=== PATIENT | male | born 1990 | race Caucasian/White ===

== ENCOUNTER 2018-03-13 03:09 | Emergency (ER) | payer MEDICAID, SELFPAY ==
[2018-03-13 03:10] VITALS: BP 136/84; PULSE 81; RESP 14; TEMP 36.5; O2SAT 100; BMI 22.6
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
[2018-03-13] MEDS: traMADol 50 MG Tablet PO (03:52)
[2018-03-13] MEDS: Naproxen 500 MG Tablet PO (03:52)
[2018-03-13 04:02] VITALS: RESP 16
== END 2018-03-13 04:02 | disposition home or self-care (01) ==
PROVIDERS: Emergency Provider Emergency Medicine
DX: T23.231A Burn of second degree of multiple right fingers (nail), not including thumb, initial encounter (principal); T31.0 Burns involving less than 10% of body surface; F17.200 Nicotine dependence, unspecified, uncomplicated; X03.8XXA Other exposure to controlled fire, not in building or structure, initial encounter; Y93.89 Activity, other specified; Y92.89 Other specified places as the place of occurrence of the external cause; Y99.8 Other external cause status
CPT/HCPCS: 99283

== ENCOUNTER 2018-05-13 03:47 | Emergency (ER) | payer OTHER, MEDICAID, SELFPAY ==
[2018-05-13 03:48] VITALS: BP 136/73; PULSE 66; RESP 18; TEMP 36.6; O2SAT 95; BMI 23.7
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
--- NOTE | 2018-05-13 04:04 | DCINST.ED_ITS ---
ED Disposition - Plan for ED Patient: Chief Complaint: Laceration Instructions: ED Laceration Hand Referrals: Care Physician,No Primary [Primary Care Provider] - Corporate,[facility] [GROUP OF PHYSICIANS] - 10 Day for suture removal
== END 2018-05-13 04:01 | disposition home or self-care (01) ==
PROVIDERS: Emergency Provider Emergency Medicine
DX: S61.012A Laceration without foreign body of left thumb without damage to nail, initial encounter (principal); Z72.0 Tobacco use; W26.0XXA Contact with knife, initial encounter; Y93.89 Activity, other specified; Y92.89 Other specified places as the place of occurrence of the external cause; Y99.0 Civilian activity done for income or pay
CPT/HCPCS: 12001; 99284

== ENCOUNTER 2019-03-03 16:26 | Emergency (ER) | payer SELFPAY ==
[2019-03-03 16:27] VITALS: BP 106/76; PULSE 111; RESP 16; TEMP 36.7; O2SAT 99; BMI 23.7
--- NOTE | 2019-03-03 16:34 | ED.VISSUMM ---
- ER Visit Summary Date of Service: 03/03/19 Chief Complaint: Abscess History of Present Illness: The patient is a 28 M with a right groin abscess for several days. No other symptoms. No blood thinners. No allergies. Physical Examination: Patient has a right perineum abscess measuring approximately one 7 m x 2 cm. Does not involve the genitalia or anus. Superficial. Test Results: None indicated Emergency Department Course and Treatment: I&D performed by me. Wound left open. Soaks. Bactrim and Keflex. Follow-up with primary care. Treatment Plan: As above Disposition: Discharge Impression: Right perineum abscess I&D This note was generated with [employer] dictation software. It may contain incorrect words, spelling, and punctuation that were not noted in review of the chart prior to signing ED Disposition - Plan for ED Patient: Referrals: Care Physician,No Primary [Primary Care Provider] -
--- NOTE | 2019-03-03 16:40 | ED.DEP ---
ED Disposition - Plan for ED Patient: Instructions: ABSCESS, Incision and Drainage Prescriptions: Smz/Tmp Ds [Bactrim Ds] 1 tab PO BID #14 tab Prescription Printed Cephalexin [Keflex] 500 mg PO Q6 7 Days #28 cap Prescription Printed Referrals: Sarahi Ladd [NON-STAFF] -
[2019-03-03] MEDS: Cephalexin 250 MG Capsule 500 MG PO (17:17)
[2019-03-03] MEDS: Smz/Tmp Ds Tablet 1 TABLET PO (17:17)
== END 2019-03-03 17:50 | disposition home or self-care (01) ==
PROVIDERS: Emergency Provider Emergency Medicine
DX: L02.215 Cutaneous abscess of perineum (principal); Z72.0 Tobacco use
CPT/HCPCS: 10060; 99284

== ENCOUNTER 2019-03-04 00:18 | Emergency (ER) | payer SELFPAY ==
[2019-03-03 16:27] VITALS: BMI 23.7
[2019-03-04 00:21] VITALS: BP 119/73; PULSE 98; RESP 16; TEMP 37.6; O2SAT 98; BMI 24.0
--- NOTE | 2019-03-04 00:35 | EKG12_ITS ---
Test Reason : ALT LOC Blood Pressure : / mmHG Vent. Rate : 096 BPM Atrial Rate : 096 BPM P-R Int : 150 ms QRS Dur : 102 ms QT Int : 334 ms P-R-T Axes : 079 076 079 degrees QTc Int : 421 ms Normal sinus rhythm with sinus arrhythmia Normal ECG Confirmed by JAIME ANN ([id number]), loan expeditor MARSHA MCKEON ([id number]) on 03/08/2019 1:25:24 PM Referred By: TONYA Confirmed By:JAIME ANN
--- NOTE | 2019-03-04 00:35 | CT_ITS ---
HISTORY: RT PERINEAL ABSCESS X SEVERAL DAYS,FEVER,SEEN EARLIER AND STARTED ANTIBIOTICS TECHNIQUE: CT of the pelvis was performed with IV contrast. A radiation dose optimization technique was used for this scan. IV Contrast dosage and agent: 100ML ml of Isovue 300 Enteric contrast: None. Number of images including paperwork: 413. COMPARISON: None FINDINGS: BLADDER: Unremarkable. REPRODUCTIVE ORGANS: Unremarkable. GASTROINTESTINAL TRACT: Unremarkable visualized segments. PERITONEUM AND RETROPERITONEUM: No free air. No significant free fluid. LYMPH NODES: No enlarged pelvic lymph nodes. ABDOMINAL WALL: No definite hernia. SKELETON: No acute skeletal findings. SOFT TISSUE STRUCTURES: Soft tissue stranding is present in the right perineum and inferomedial gluteal region. No localized fluid collection or soft tissue gas. CT/Pelvis WITH IV Contrast IMPRESSION: Soft tissue stranding in the right perineum and inferomedial gluteal region suggestive of cellulitis. Individualized dose optimization techniques were used for this CT. at 0219 Reported and signed by: Radha Paz MD Electronically Signed: Radha Paz MD at 2:19 EDT Tel , Service support ,
--- NOTE | 2019-03-04 00:37 | ED.DCSUM_ITS ---
History of Present Illness Chief Complaint: Alt LOC Informant: Family Onset: Today Narrative: Informant from friends and family. Seen earlier today for an abscess with I&D. He was discharged around 5 PM. Prescription of Keflex and Bactrim was written. Not filled. Reported by family, states was not feeling well and having fevers sensations. Took a shower, took ibuprofen, and stating he is not himself. They state he has tobacco history denies illicit drug use. Occasional alcohol. He was not written for any narcotics from discharge. Patient currently not communicating or willing to talk. Past Medical History - Allergies and Home Meds Allergies/Adverse Reactions: Allergies No Known Allergies Allergy (Verified 03/04/19 00:21) Primary Care Physician: Care Physician,No Primary [Primary Care Provider] - Smoking Status: Current every day smoker Review of Systems ROS: Unable to Obtain Physical Exam Vital Signs/Narrative: Vital Signs Temp Pulse Resp BP Pulse Ox 03/04/19 00:21 99.7 F H 98 16 119/73 98 Inital Vital Signs reviewed: Yes General: Well nourished, Well developed, - - Moving all extremities rolling around in bed, however not answering questions. Head: Normocephalic, Atraumatic Eyes: Perrl, EOMI, - - 4 mm pupils equal and reactive bilaterally. ENT: Moist mucous membranes, No rhinorrhea Neck: Supple, Nontender Cardiovascular: Regular rate, Regular rhythm, No murmurs Respiratory: No distress, CTA bilaterally, Chest nontender Abdomen: Soft, Nontender, Nondistended, Normal bowel sounds : - - Perennial region noted abscess right side with induration, no active drainage, there is erythema in the area, there is no scrotal involvement. Back: Nontender, Normal Inspection Extremities: Nontender, No edema Skin: Normal color, No rash, - - See above Neurological: Cranial nerves II-XII grossly intact Psychological: - - Slightly agitated Diagnostic/Tx/Re-eval Abnormal Lab Results 03/04/19 03/04/19 03/04/19 00:40 00:40 00:40 WBC 16.1 H RBC 5.06 Hgb 14.3 Hct 43.5 MCV 86.0 MCH 28.3 MCHC 32.9 RDW Std Deviation 42.2 RDW Coeff of [place] 13.5 Plt Count 244 MPV 9.0 Immature Gran % (Auto) 0.400 Neut % (Auto) 80.2 H Lymph % (Auto) 10.3 L [place] % (Auto) 7.8 Eos % (Auto) 1.1 Baso % (Auto) 0.2 Absolute Neuts (auto) 12.9 H Absolute Lymphs (auto) 1.66 Nucleated RBC % 0 PT 14.3 INR 1.1 APTT 31.3 Sodium 139 Potassium 3.4 L Chloride 107 Carbon Dioxide 26.0 Anion Gap 6 BUN 11 Creatinine 1.03 Estim Creat Clear Calc 113.72 Est GFR (MDRD) Af Amer 110 Est GFR (MDRD) Non-Af 91 BUN/Creatinine Ratio 10.7 Glucose 95 Lactic Acid Calcium 8.9 Total Bilirubin 0.50 AST 14 L ALT 20 Alkaline Phosphatase 65 Total Protein 7.4 Albumin 3.8 Globulin 3.6 Albumin/Globulin Ratio 1.1 Urine Color Urine Clarity Urine pH Ur Specific Melissa Urine Protein Urine Glucose (UA) Urine Ketones Urine Occult Blood Urine Nitrite Urine Bilirubin Urine Urobilinogen Ur Leukocyte Esterase Urine RBC Urine WBC Ur Squamous Epith Cells Amorphous Sediment Urine Bacteria Hyaline Casts Coarse Granular Casts Urine Mucus Urine Opiates Screen Urine Methadone Screen Ur Barbiturates Screen Ur Phencyclidine Scrn Ur Amphetamines Screen U Methamphetamin-MDMA U Benzodiazepines Scrn Urine Cocaine Screen U Cannabinoids Screen Ur Drug Screen Comment Ethyl Alcohol 03/04/19 03/04/19 03/04/19 00:40 00:55 02:10 WBC RBC Hgb Hct MCV MCH MCHC RDW Std Deviation RDW Coeff of [place] Plt Count MPV Immature Gran % (Auto) Neut % (Auto) Lymph % (Auto) [place] % (Auto) Eos % (Auto) Baso % (Auto) Absolute Neuts (auto) Absolute Lymphs (auto) Nucleated RBC % PT INR APTT Sodium Potassium Chloride Carbon Dioxide Anion Gap BUN Creatinine Estim Creat Clear Calc Est GFR (MDRD) Af Amer Est GFR (MDRD) Non-Af BUN/Creatinine Ratio Glucose Lactic Acid 1.4 Calcium Total Bilirubin AST ALT Alkaline Phosphatase Total Protein Albumin Globulin Albumin/Globulin Ratio Urine Color Yellow Urine Clarity Sl. Cloudy Urine pH 7.0 Ur Specific Melissa 1.010 Urine Protein Negative Urine Glucose (UA) Normal Urine Ketones Negative Urine Occult Blood Negative Urine Nitrite Negative Urine Bilirubin Negative Urine Urobilinogen Normal Ur Leukocyte Esterase Negative Urine RBC 0 SEEN Urine WBC 0 SEEN Ur Squamous Epith Cells 0-5 SEEN Amorphous Sediment 1+ Urine Bacteria RARE Hyaline Casts 0-5 SEEN Coarse Granular Casts 0-5 SEEN Urine Mucus RARE Urine Opiates Screen Urine Methadone Screen Ur Barbiturates Screen Ur Phencyclidine Scrn Ur Amphetamines Screen U Methamphetamin-MDMA U Benzodiazepines Scrn Urine Cocaine Screen U Cannabinoids Screen Ur Drug Screen Comment Ethyl Alcohol 4.0 03/04/19 02:10 WBC RBC Hgb Hct MCV MCH MCHC RDW Std Deviation RDW Coeff of [place] Plt Count MPV Immature Gran % (Auto) Neut % (Auto) Lymph % (Auto) [place] % (Auto) Eos % (Auto) Baso % (Auto) Absolute Neuts (auto) Absolute Lymphs (auto) Nucleated RBC % PT INR APTT Sodium Potassium Chloride Carbon Dioxide Anion Gap BUN Creatinine Estim Creat Clear Calc Est GFR (MDRD) Af Amer Est GFR (MDRD) Non-Af BUN/Creatinine Ratio Glucose Lactic Acid Calcium Total Bilirubin AST ALT Alkaline Phosphatase Total Protein Albumin Globulin Albumin/Globulin Ratio Urine Color Urine Clarity Urine pH Ur Specific Melissa Urine Protein Urine Glucose (UA) Urine Ketones Urine Occult Blood Urine Nitrite Urine Bilirubin Urine Urobilinogen Ur Leukocyte Esterase Urine RBC Urine WBC Ur Squamous Epith Cells Amorphous Sediment Urine Bacteria Hyaline Casts Coarse Granular Casts Urine Mucus Urine Opiates Screen NEGATIVE Urine Methadone Screen NEGATIVE Ur Barbiturates Screen NEGATIVE Ur Phencyclidine Scrn NEGATIVE Ur Amphetamines Screen NEGATIVE U Methamphetamin-MDMA NEGATIVE U Benzodiazepines Scrn NEGATIVE Urine Cocaine Screen NEGATIVE U Cannabinoids Screen NEGATIVE Ur Drug Screen Comment Ethyl Alcohol Clinical Impression(s) from Imaging Studies Pelvis CT 03/04/19 00:35 IMPRESSION: Soft tissue stranding in the right perineum and inferomedial gluteal region suggestive of cellulitis. Individualized dose optimization techniques were used for this CT. at 0219 Reported and signed by: Radha Paz MD Electronically Signed: Radha Paz MD at 2:19 EDT Tel , Service support , - Medical Decision Making Patient vital signs stable on arrival temp is 99, he had no lateralizing findings or focal deficits. He has had abscess in his perineal region that was I&D earlier. There is induration and redness in this region. Sepsis work-up was initiated, white count 16, lactic acid 1.4. Pelvis CT obtained, shows no pocket collections, stranding noted consistent with cellulitis in the region. Alcohol and tox screen negative. In interim multiple evaluations he was more responsive he was up walking around he is alert and oriented x3. Reports he just did not want to talk earlier, he is not septic. Patient back to baseline, discussed wound care with patient continuing his antibiotics and finishing him, he is due for his next dose therefore there is ordered. Bactrim and Keflex orally was given. He will follow-up as noted with sun Luque from his discharge. Signs and symptoms discussed return. All questions were answered. ED Disposition - Plan for ED Patient: Disposition: Home or Assisted Living Diagnosis: Cellulitis of perineum Instructions: Cellulitis Referrals: Care Physician,No Primary [Primary Care Provider] - Sarahi Ladd [NON-STAFF] - 3-5 Days Additional Instructions: You had your infection area drained earlier. There is no abscess collection on CT. Take your antibiotics as prescribed and finish this. Follow-up as discussed. Return if any worsening symptoms.
[2019-03-04 00:50] LABS: Absolute Lymphocyte Count 1.66 X10^3/uL (0.83-4.51); Absolute Neutrophil Count 12.9 X10^3/uL (2.0-7.7); Basophil# 0.03 X10^3/uL; Basophil% 0.2 % (0-1); Eosinophil# 0.18 X10^3/uL; Eosinophils% 1.1 % (0-5); Hematocrit 43.5 % (40-54); Hemoglobin 14.3 g/dL (13.0-16.5); Lymphocyte # 1.66 X10^3/ul (4.0); Lymphocyte % 10.3 % (19-41); Mean Corp Hgb Conc 32.9 g/dL (32-36); Mean Corpuscular Hgb 28.3 pg (27.0-32.0); Monocyte# 1.25 X10^3/uL; Monocyte% 7.8 % (0-10); NRBC Flagged by Analyzer 0 % (0-5); Neutrophil # 12.92 X10^3/uL (2.7-7.7); Neutrophil % 80.2 % (47-70); Platelet Count 244 K/mm3 (150-450); RBC Distribution Width CV 13.5 % (11.6-14.6); RBC Distribution Width SD 42.2 fl (35.1-43.9); Red Blood Count 5.06 M/mm3 (4.6-6.2); White Blood Count 16.1 K/mm3 (4.4-11.0)
[2019-03-04] MEDS: 0.9% Normal Saline 1,000 ML 150 ML IV (00:54)
[2019-03-04 01:02] LABS: International Normalized Ratio 1.1; Prothrombin Time (Protime)PT. 14.3 SECONDS (11.7-14.9)
[2019-03-04 01:03] LABS: Partial Thromboplast Time 31.3 Seconds (24.1-36.2)
--- NOTE | 2019-03-04 01:04 | ED.RN ---
advised pt that urine specimen is needed.pt is awake,but not talking presently.pt uses head gestures and hands to communicate to his friend.
[2019-03-04 01:07] LABS: ALB/GLOB Ratio 1.1 RATIO (0.9-2.4); AST(SGOT) 14 U/L (15-37); Alanine Aminotransfer ALT/SGPT 20 U/L (16-61); Albumin, Serum 3.8 g/dL (3.2-5.0); Alkaline Phosphatase 65 U/L (45-117); Anion Gap 6 (5-15); BUN 11 mg/dL (7-18); BUN/Creat Ratio 10.7 RATIO (10-20); Calcium,Total 8.9 mg/dL (8.5-10.1); Chloride 107 mmol/L (98-107); Creatinine, Serum 1.03 mg/dL (0.70-1.30); EST Glomerular Filtration Rate 91 mL/min (>60); Est Glom Filt Rate - Afr Amer 110 mL/min (>60); Estimated Creatinine Clearance 113.72 ml/min; Globulin 3.6 g/dL (2.2-4.2); Glucose 95 mg/dL (74-106); Potassium 3.4 mmol/L (3.5-5.1); Protein, Total 7.4 g/dL (6.4-8.2); Sodium Level 139 mmol/L (136-145)
[2019-03-04 01:11] LABS: Lactic Acid 1.4 mmol/L (0.4-2.0)
[2019-03-04 01:28] VITALS: RESP 16
[2019-03-04 02:14] LABS: Red Blood Cells-Urine 0 SEEN /hpf (0-5); White Blood Cells 0 SEEN /hpf (0-5)
[2019-03-04 02:15] LABS: Color, Urine Yellow (Yellow); Glucose, Dipstick Normal (Normal); Ketone-Dipstick Negative (Negative); Leukocyte Esterase-Dipstick Negative /ul (Negative); Nitrite-Dipstick Negative (Negative); Occult Blood-Urine Negative /ul (Negative); Protein-Dipstick Negative (Negative); Urine Bilirubin Dipstick Negative (Negative); Urine Clarity Sl. Cloudy (Clear); Urine Urobilinogen Normal (Normal)
[2019-03-04 02:20] LABS: Amorphous Sediment 1+; Bacteria RARE /hpf (None Seen); Coarse Granular Cast 0-5 SEEN /lpf (0-5 /lpf); Hyaline Cast 0-5 SEEN /lpf (0-5); Mucous, Urine RARE /hpf (<or=2+)
[2019-03-04 02:21] LABS: Squamous Epithelial Cells - UA 0-5 SEEN /hpf (0-5)
[2019-03-04 02:41] LABS: Amphetamine Urine VISTA NEGATIVE (<1000 ng/mL); Barbiturate Urine VISTA NEGATIVE (< 200 ng/mL); Benzodiazepine Urine VISTA NEGATIVE (< 200 ng/mL); Cocaine Urine VISTA NEGATIVE (< 300 ng/mL); Ecstacy Urine VISTA NEGATIVE (< 500 ng/mL); Methadone Urine VISTA NEGATIVE (< 300 ng/mL); PCP Urine VISTA NEGATIVE (< 25 ng/mL); THC Urine VISTA NEGATIVE (< 50 ng/mL); Vista UDS pH Range 7
[2019-03-04] MEDS: Smz/Tmp Ds Tablet 1 TABLET PO (02:59)
[2019-03-04] MEDS: Cephalexin 250 MG Capsule 500 MG PO (02:59)
[2019-03-04 03:00] VITALS: BP 124/60; PULSE 77; RESP 16; O2SAT 99
== END 2019-03-04 03:01 | disposition home or self-care (01) ==
PROVIDERS: Emergency Provider Emergency Medicine
DX: L03.315 Cellulitis of perineum (principal); F17.200 Nicotine dependence, unspecified, uncomplicated
CPT/HCPCS: 36415; 72193; 80053; 80307; 80320; 81001; 83605; 85025; 85610; 85730; 87040; 93005; 96360; 96361; 99285; J7030; Q9967; A4216; G0480

== ENCOUNTER 2022-07-25 12:36 | Emergency (ER) | payer MEDICAID, SELFPAY ==
[2022-07-25 12:37] VITALS: BP 132/88; PULSE 87; RESP 16; TEMP 36; O2SAT 100; BMI 23.7
[2022-07-25 13:16] VITALS: BP 126/78; PULSE 66; RESP 16; TEMP 36.6; O2SAT 99
--- NOTE | 2022-07-25 13:17 | EDS_ITS ---
HPI History of Present Illness Chief Complaint: General Illness Informant: patient Narrative Narrative: Patient is a 32-year-old male who denies any past medical history presenting with 1 day of dysuria and penile discharge. No associated testicular pain. States he recently got out of a relationship but had only had 1 partner. Denies any history of sexually transmitted infections. Denies any other complaints at this time. PFSH PFSH Medical History no medical history Home Medications doxycycline hyclate 100 mg tablet 100 mg PO BID #13 tabs 07/25/22 [Rx Last Taken Unknown] Allergy/AdvReac Type Severity Reaction Status Date / Time No Known Allergies Allergy Verified 07/25/22 12:37 Surgical History no surgical history Social History Smoking Status: Current some day smoker tobacco type: cigarettes ROS ROS ED Constitutional Constitutional ED: Denies chills or fever(s) ENT ENT ED: Denies rhinorrhea or sore throat Cardiovascular Cardiovascular: Denies chest pain Respiratory/Chest Respiratory/Chest: Denies cough Gastrointestinal Gastrointestinal: Denies abdominal pain Genitourinary Genitourinary ED: Reports dysuria and other Details: Penile discharge ; Denies hematuria Musculoskeletal Musculoskeletal: Denies arthralgias or myalgias Integumentary Denies rash Neurologic Neurologic: Denies weakness Psychiatric Psychiatric: Denies anxiety EXAM Physical Exam Const Vital Signs: 07/25/22 12:37 07/25/22 12:36 07/25/22 13:16 Temperature 96.8 F L 97.8 F Temperature Source Temporal Pulse Rate 87 66 Respiratory Rate 16 16 Respiratory Pattern Normal Blood Pressure 132/88 H 126/78 H Blood Pressure Mean 102 Pulse Ox 100 99 Oxygen Delivery Method Room Air Positive well nourished and well developed General Appearance ED: well developed and NAD HEENT Reports moist mucous membranes Eyes PERRL and EOMs intact bilaterally Neck supple Chest Wall inspection of chest normal and palpation of chest normal Resp normal respiratory effort and clear to auscultation bilaterally GI normal to inspection, nondistended, normoactive bowel sounds and non-tender Narrative: Circumcised penis. Slight mucoid discharge noted from the tip of the penis. No lesions appreciated. Normal testicular exam. No tenderness to palpation. Extremity normal to inspection Psych mental status grossly normal Skin no rashes or lesions noted and no wounds MDM MDM MDM Narrative Medical decision making narrative: Patient is evaluated for 1 day of dysuria and penile discharge. Physical exam does show some penile discharge was otherwise normal. No obvious lesions appreciated. Patient would like to be treated empirically for gonorrhea and chlamydia. Urinalysis will be sent off as well as culture and gonorrhea/chlamydia testing. Patient counseled to abstain from sexual intercourse until treated for 2 weeks and to contact his partner if this test comes back positive for contact tracing. He is given information for follow-up for the [facility]. Counseled return precautions. Discharged home in stable condition. Lab Data Labs: Laboratory Results - last 24 hr 07/25/22 07/25/22 13:25 13:25 Urine Color Yellow Urine Clarity Sl. Cloudy Urine pH 6.0 Ur Specific [place] 1.020 Urine Protein 15 H Urine Glucose (UA) Normal Urine Ketones Negative Urine Occult Blood 10 H Urine Nitrite Negative Urine Bilirubin Negative Urine Urobilinogen Normal Ur Leukocyte Esterase 500 H Urine RBC 0 SEEN Urine WBC 50-100 SEEN Ur Squamous Epith Cells 0 SEEN Urine Bacteria 0 SEEN Urine Mucus 3+ Chlam trachomat DNA PCR Negative N.gonorrhoeae DNA (PCR) Positive H Discharge Plan Triage Chief Complaint: General Illness ED Provider: Erum Blancas Dx/Rx/DC Orders Clinical Impression: Screen for STD (sexually transmitted disease), Dysuria, Penile discharge Instructions: ED STI Male Treated Prescriptions: New doxycycline hyclate 100 mg tablet 100 mg PO BID Qty: 13 0RF Primary Care Provider: Care Physician,No Primary Referrals: Sarahi Ladd [Non-Staff] - As Needed Care Physician,No Primary [Primary Care Provider] - Disposition Disposition: Home, Self Care Discharge Date/Time: 07/25/22 13:55
[2022-07-25] MEDS: Doxycycline 100 MG CAPSULE PO (13:49)
[2022-07-25] MEDS: Ceftriaxone 500 MG Vial IM (13:49)
[2022-07-25 13:55] LABS: Bacteria 0 SEEN /hpf (None Seen); Red Blood Cells-Urine 0 SEEN /hpf (0-5); Squamous Epithelial Cells - UA 0 SEEN /hpf (0-5)
[2022-07-25 14:10] LABS: Mucous, Urine 3+ /hpf (<or=2+); White Blood Cells 50-100 SEEN /hpf (0-5)
[2022-07-25 14:17] LABS: Color, Urine Yellow (Yellow); Glucose, Dipstick Normal (Normal); Ketone-Dipstick Negative (Negative); Leukocyte Esterase-Dipstick 500 /ul (Negative); Nitrite-Dipstick Negative (Negative); Occult Blood-Urine 10 /ul (Negative); Protein-Dipstick 15 mg/dl (Negative); Urine Bilirubin Dipstick Negative (Negative); Urine Clarity Sl. Cloudy (Clear); Urine Urobilinogen Normal (Normal)
[2022-07-25 15:57] LABS: Chlamydia Trachomatis by PCR Negative (Negative); Probe Check PASS
[2022-07-25 16:00] LABS: Neisserai gonorrhoeae by PCR Positive (Negative)
--- NOTE | 2022-07-25 16:01 | ED.RN ---
lab called to report positive gonorrhea, dr hoskins notified
== END 2022-07-25 13:55 | disposition home or self-care (01) ==
PROVIDERS: Emergency Provider Emergency Medicine; Visit Provider Emergency Medicine
DX: Z11.3 Encounter for screening for infections with a predominantly sexual mode of transmission (principal); R30.0 Dysuria; F17.210 Nicotine dependence, cigarettes, uncomplicated
CPT/HCPCS: 81001; 87086; 87491; 87591; 96372; 99283

== ENCOUNTER 2023-02-25 20:22 | Outpatient (REF) | payer SELFPAY ==
[2023-02-25 20:23] VITALS: BP 128/85; PULSE 124; RESP 18; TEMP 36.6; O2SAT 97; BMI 23.7
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
--- NOTE | 2023-02-25 20:40 | RAD_ITS ---
INDICATION: right rib pain EXAMINATION/TECHNIQUE: X-RAY - XR Right Ribs Unilateral W/ PA Chest Min 3 Views COMPARISON: FINDINGS: SOFT TISSUES: No soft tissue swelling or gas. BONES: No displaced fracture. No sclerotic or destructive changes observed. VISUALIZED LUNGS: Clear. No pneumothorax. RAD/Ribs Uni Min 3V w/PA Chest IMPRESSION: No evidence of displaced rib fracture. Electronically Signed: Jermain Lama DO at 21:11 EDT ,
[2023-02-25] MEDS: Ibuprofen 600 MG Tablet PO (20:55)
[2023-02-25] MEDS: Lidocaine 5% Patch 1 PATCH TOPICAL (20:55)
== END 2023-02-25 21:31 ==
LOC: ED 20:22
PROVIDERS: Visit Provider Student in an Organized Health Care Education/Training Program
DX: S20.211A Contusion of right front wall of thorax, initial encounter (principal); Y35.93XA Legal intervention, means unspecified, suspect injured, initial encounter; F17.210 Nicotine dependence, cigarettes, uncomplicated; Y35.833A Legal intervention involving a conducted energy device, suspect injured, initial encounter
CPT/HCPCS: 71101; 99285